=== PATIENT | male | born 2005 | race Caucasian/White ===

== ENCOUNTER 2023-06-15 19:44 | Outpatient (CLI) | payer BC, SELFPAY ==
[2023-06-16 06:09] LABS: Chlamydia DNA Amplified* NOT DETECTED (No Detected); GC DNA Amplified* NOT DETECTED (No Detected)
== END 2023-06-15 19:45 | disposition home or self-care (01) ==
LOC: NFLDUCREF 19:44
PROVIDERS: Visit Provider Nurse Practitioner
DX: Z11.3 Encounter for screening for infections with a predominantly sexual mode of transmission (principal)
CPT/HCPCS: 87491; 87591